=== PATIENT | male | born 1995 | race African-American/Black ===

== ENCOUNTER 2023-06-27 09:57 | Emergency (ER) | payer MEDICAID ==
[~2023-06-27] VITALS: Ht 172.7 cm; Wt 73.0 kg
[2023-06-27 10:06] VITALS: TEMP 98.7; O2SAT 99
[2023-06-27] MEDS ORDERED: FENTANYL CITRATE/PF 50MCG/ML 2ML VIAL IV ONE (10:45)
[2023-06-27 13:05] VITALS: BP 134/78; PULSE 66; RESP 19
== END 2023-06-27 13:50 | disposition home or self-care (01) ==
LOC: ER 09:57
DX: S43.005A Unspecified dislocation of left shoulder joint, initial encounter (principal); X58.XXXA Exposure to other specified factors, initial encounter; Y93.89 Activity, other specified; Y92.89 Other specified places as the place of occurrence of the external cause; Y99.8 Other external cause status
CPT/HCPCS: 99285; 23650; 73030; 99152; J3010; A4565; L3670

== ENCOUNTER 2024-02-20 00:33 | Emergency (ER) | payer MEDICAID, OTHER ==
[~2024-02-20] VITALS: Ht 167.6 cm; Wt 80.0 kg
[2024-02-20 00:38] VITALS: BP 145/60; PULSE 100; RESP 18; TEMP 98.2; O2SAT 99
== END 2024-02-20 04:05 | disposition home or self-care (01) ==
LOC: ER 00:44
DX: S43.085A Other dislocation of left shoulder joint, initial encounter (principal); F41.9 Anxiety disorder, unspecified; X58.XXXA Exposure to other specified factors, initial encounter; Y93.89 Activity, other specified; Y92.89 Other specified places as the place of occurrence of the external cause; Y99.8 Other external cause status
CPT/HCPCS: 23650; 73030; 99152; 99285; A4565

== ENCOUNTER 2025-04-06 15:01 | Emergency (ER) | payer OTHER ==
[~2025-04-06] VITALS: Ht 170.2 cm; Wt 68.0 kg
[2025-04-06 15:09] VITALS: O2SAT 99
[2025-04-06] MEDS: LIDOCAINE HCL 1% 20ML VIAL INFIL ONE (16:05)
[2025-04-06] MEDS ORDERED: CLIN-116 MT (16:09)
[2025-04-06 16:32] VITALS: BP 132/75; PULSE 101; RESP 15; TEMP 37.1; O2SAT 99
== END 2025-04-06 16:33 | disposition home or self-care (01) ==
LOC: ER 15:01
DX: M27.2 Inflammatory conditions of jaws (principal); J45.909 Unspecified asthma, uncomplicated; F31.9 Bipolar disorder, unspecified; F20.9 Schizophrenia, unspecified; F41.9 Anxiety disorder, unspecified
CPT/HCPCS: 99284; 10160; J2003